=== PATIENT | male | born 1960 | race Caucasian/White ===

== ENCOUNTER 2020-07-06 09:54 | Day surgery (SDC) | payer MEDICARE, MEDICAID ==
[2020-07-06] MEDS ORDERED: Metoprolol Succinate 25 MG Tab.ER PO ONE (10:45)
[2020-07-06] MEDS ORDERED: Dextrose 5%-Lactated Ringers 1,000 ML IV SCH (10:45)
[2020-07-06] MEDS ORDERED: Albuterol/Ipratropium 3.0-0.5 MG/3 ML Neb Soln NEB ONE (10:45)
[2020-07-06] MEDS ORDERED: Theophylline 100 MG Cap.ER PO ONE (11:00)
[2020-07-06] MEDS ORDERED: Midazolam 1 MG/ML 2 ML SDV ONE (11:29)
[2020-07-06] MEDS ORDERED: fentaNYL 100 MCG/2 ML SDV ONE (11:29)
[2020-07-06] MEDS ORDERED: Propofol 200 MG/20 ML SDV ONE ×2 (11:29→14:08)
[2020-07-06] MEDS ORDERED: methylPREDNISolone Sodium Succinate 125 MG/2 ML SDV IVPUSH ONE (11:30)
[2020-07-06] MEDS ORDERED: Ondansetron 4 MG/2 ML SDV IVPUSH ONE (14:44)
[2020-07-06 15:50] VITALS: BP 125/81; PULSE 86
--- NOTE | 2020-07-16 15:52 | OR ---
DATE OF PROCEDURE: 07/06/2020 SURGEON: Lexx Mccann MD PREOPERATIVE DIAGNOSES: 1. History of Ureña's esophagus. 2. History of colon polyps. POSTOPERATIVE DIAGNOSES: 1. History of Ureña's esophagus, moderate-sized (5 cm) hiatal hernia and extensive upward migration of the columnar mucosa consistent with Ureña esophagus and moderate ongoing inflammation in the distal esophagus and EG junction. 2. Mild patchy antral gastritis. 3. History of colon polyps with: a. Left colonic diverticulosis. b. No recurrent polyps formation. OPERATIVE PROCEDURES: 1. Esophagogastroduodenoscopy with: a. A. Biopsy of esophagogastric junction for histologic evaluation. b. B. Biopsies of antrum for CLOtest. 2. Colonoscopy. ANESTHESIA: IV sedation. INDICATION FOR PROCEDURE: This is a 60-year-old male referred for consideration of upper and lower endoscopy. Does have a history of Ureña's esophagus as well as history of colon polyps in the past. Plan is to proceed with an upper GI endoscopy with biopsies as indicated and flexible colonoscopy with biopsies and/or polypectomy as indicated. Potential risks including bleeding and perforation were discussed and the patient wishes to proceed. DETAILS OF PROCEDURE: The patient was taken to the operating room and placed in a left lateral decubitus position. IV sedation was administered, after which the upper GI endoscope was passed orally through the length of the esophagus and stomach with retroflexion view of the fundus and thereafter through the pyloric channel and into the junction of the third and fourth portions of the duodenum. Findings included normal hypopharynx, larynx, and upper esophageal sphincter. The upper esophagus was unremarkable. The patient does have a history of some esophageal varices. These were present in the mid and distal esophagus but on today's exam, they were very minimal in terms of their volume and apart from this, the patient had a moderate-sized, roughly 5 cm hiatal hernia with a considerable upward extension of the columnar mucosa above the upper gastric folds consistent with Ureña's esophagus. There was no plaquing or stricturing, i.e., no gross suggestion of neoplastic change. There was a moderate ongoing inflammation within the area of the Ureña's esophagus. In the stomach, there was some patchy antral gastritis without erosions or ulcers. The visualized portions of the duodenum were unremarkable. At this point, biopsies obtained from the antrum and sent for CLOtest for H pylori. Multiple biopsies were then obtained from esophagogastric junction, sent for histologic evaluation. Minimal bleeding from the biopsy sites was seen and the procedure then concluded. Attention was taken to the colonoscopy. The initial digital exam was performed and was unremarkable. Colonoscope was then passed into the rectum with retroflexion revealing uncomplicated hemorrhoidal columns. Scope was eventually passed to the level of the cecum. The prep was fairly good. Only a small amount of liquid stool was present. There was some uncomplicated but otherwise quite extensive left colonic diverticulosis. Apart from that, there were no areas of colitis and no recurrent polyps or other signs of neoplasia. The scope was then withdrawn, the above findings were reconfirmed, and the procedure then concluded. At this point, we will continue the present medical management consisting of omeprazole for the Ureña's esophagus and associated esophagitis. Assuming that today's exam does not show a trend toward dysplasia within the Ureña's esophagus, the next upper endoscopy should be in 2 years. With the exam today showing no recurrent polyps, the next colonoscopy would be recommended in 5 years. Lexx Mccann MD /[id number]
== END 2020-07-06 15:45 | disposition home or self-care (01) ==
LOC: JP.SDS 09:54
PROVIDERS: ATTEND Surgery
DX: Z12.11 Encounter for screening for malignant neoplasm of colon (principal); K57.30 Diverticulosis of large intestine without perforation or abscess without bleeding; K29.70 Gastritis, unspecified, without bleeding; K44.9 Diaphragmatic hernia without obstruction or gangrene; K64.9 Unspecified hemorrhoids; K31.89 Other diseases of stomach and duodenum; G47.33 Obstructive sleep apnea (adult) (pediatric); J44.9 Chronic obstructive pulmonary disease, unspecified; Z86.010 Personal history of colon polyps; Z87.19 Personal history of other diseases of the digestive system
CPT/HCPCS: 43239; 87081; 88305; 94640; A9270; G0105; J2250; J2405; J2704; J2930; J3010; J7121; J7620-GY